=== PATIENT | female | born 1975 | race Caucasian/White ===

== ENCOUNTER → 2021-03-22 | Outpatient (CLI) | payer BC ==
[2021-03-22 17:06] LABS: HEMOGLOBIN 12.5 gm/dl (12.3-15.3); RED BLOOD COUNT 4.47 M/UL (4.00-5.10); WHITE BLOOD COUNT 5.6 K/UL (4.5-11.0)
[2021-03-22 17:46] LABS: BUN/CREATININE RATIO 21 (0-10)
[2021-03-24 08:13] LABS: HBSAG SCREEN Negative (Negative); HCV AB <0.1 (0.0-0.9); HEP B CORE AB, TOT Negative (Negative); VITAMIN D, 25-HYDROXY 43.5 ng/mL (30.0-100.0)
[2021-03-24 09:13] LABS: RHEUMATOID ARTHRITIS FACTOR 87.3 IU/mL (0.0-13.9)
[2021-03-26 15:11] LABS: ANGIOTENSIN-CONVERTING ENZYME 20 U/L (14-82)
[2021-03-28 06:10] LABS: QUANTIFERON MITOGEN VALUE >10.00 IU/mL (.); QUANTIFERON NIL VALUE 0.01 IU/mL (.); QUANTIFERON TB1 AG VALUE 0.01 IU/mL (.); QUANTIFERON TB2 AG VALUE 0.02 IU/mL (.); QUANTIFERON-TB GOLD PLUS Negative (Negative)
== END ==
LOC: LAB 12:55 → EDBD 12:55
PROVIDERS: Nurse Practitioner Family
DX: M79.642 Pain in left hand (principal); M79.641 Pain in right hand; M25.50 Pain in unspecified joint; R53.83 Other fatigue; M79.10 Myalgia, unspecified site
CPT/HCPCS: 36415; 73130; 80053; 82164; 82550; 82728; 83520; 84439; 84443; 85025; 85652; 86140; 86200; 86431; 86704; 86803; 87340